=== PATIENT | male | born 1940 | race Caucasian/White ===

== ENCOUNTER → 2016-12-26 | Outpatient (REF) | payer OTHER | LOC: M LABDRAWC 11:19 | PROVIDERS: ATTEND Urology | DX: R97.20 Elevated prostate specific antigen [PSA] (principal) ==

== ENCOUNTER → 2017-06-27 | Outpatient (REF) | payer OTHER | LOC: M LAB REF 17:18 | PROVIDERS: ATTEND Urology | DX: D40.0 Neoplasm of uncertain behavior of prostate (principal) ==

== ENCOUNTER → 2017-07-24 | Outpatient (REF) | payer MEDICARE, OTHER, SELFPAY | LOC: M LAB REF 17:10 | PROVIDERS: ATTEND Urology | DX: R35.0 Frequency of micturition (principal) ==

== ENCOUNTER → 2017-11-10 | Outpatient (REF) | payer OTHER ==
[2017-11-10 16:41] LABS: PROSTATIC SPECIFIC AG MONITOR 6.09 NG/ML (< 4.0)
== END ==
LOC: M LABDRAWC 16:10
DX: R97.21 Rising PSA following treatment for malignant neoplasm of prostate (principal); R97.20 Elevated prostate specific antigen [PSA]
CPT/HCPCS: 84153

== ENCOUNTER → 2018-03-30 | Outpatient (REF) | payer OTHER ==
[2018-03-30 11:11] LABS: HEMATOCRIT 44.6 % (42.0-52.0); HEMOGLOBIN 14.9 g/dl (13.5-17.5); MEAN CORPUSCULAR HEMOGLOBIN 30.3 pg (27.0-33.0); MEAN CORPUSCULAR HGB CONC 33.4 g/dl (32.0-36.5); MEAN CORPUSCULAR VOLUME 90.8 fl (80.0-96.0); PLATELET COUNT, AUTOMATED 234 10^3/uL (150-450); RED BLOOD COUNT 4.91 10^6/uL (4.30-6.10); RED CELL DISTRIBUTION WIDTH 12.1 % (11.5-14.5); WHITE BLOOD COUNT 7.2 10^3/uL (4.0-10.0)
[2018-03-30 11:28] LABS: ALBUMIN 3.7 GM/DL (3.2-5.2); ALBUMIN/GLOBULIN RATIO 1.12 (1.00-1.93); ALKALINE PHOSPHATASE 92 U/L (45-117); ALT/SGPT 31 U/L (12-78); ANION GAP 6 MEQ/L (8-16); AST/SGOT 21 U/L (7-37); BILIRUBIN,TOTAL 0.5 MG/DL (0.2-1.0); BLOOD UREA NITROGEN 16 MG/DL (7-18); CALCIUM LEVEL 9.4 MG/DL (8.8-10.2); CARBON DIOXIDE LEVEL 27 MEQ/L (21-32); CHLORIDE LEVEL 109 MEQ/L (98-107); CHOLESTEROL LEVEL 152 MG/DL (<200); CHOLESTEROL RISK RATIO 2.666 (<5); CREATININE FOR GFR 0.91 MG/DL (0.70-1.30); GLOMERULAR FILTRATION RATE > 60.0 (>42); GLUCOSE, FASTING 81 MG/DL (70-100); HDL CHOLESTEROL 57 MG/DL (>40); LDL CHOLESTEROL 86.2 MG/DL (<100); NON-HDL-C 95 MG/DL; POTASSIUM SERUM 4.4 MEQ/L (3.5-5.1); PROSTATIC SPECIFIC AG MONITOR 5.62 NG/ML (< 4.0); SODIUM LEVEL 142 MEQ/L (136-145); TRIGLYCERIDES LEVEL 44 MG/DL (<150)
== END ==
LOC: M SFHCCLAY 07:31
DX: E78.00 Pure hypercholesterolemia, unspecified (principal); Z12.5 Encounter for screening for malignant neoplasm of prostate
CPT/HCPCS: 80053

== ENCOUNTER → 2018-05-16 | Outpatient (REF) | payer OTHER ==
[2018-05-16 18:35] LABS: PROSTATIC SPECIFIC AG MONITOR 6.92 NG/ML (< 4.0)
== END ==
LOC: M LABDRAWC 16:59
DX: R35.0 Frequency of micturition (principal)
CPT/HCPCS: 84153

== ENCOUNTER 2018-11-12 14:40 | Emergency (ER) | payer MEDICARE, OTHER ==
[~2018-11-12] VITALS: Ht 188 cm; Wt 88.2 kg
[2018-11-12] MEDS ORDERED: PRAV40TA2 PO (15:17)
[2018-11-12] MEDS ORDERED: TAMSULOSIN (15:17)
[2018-11-12] MEDS ORDERED: MULT1TAB18 PO (15:17)
[2018-11-12] MEDS ORDERED: ECOT81TA5 PO (15:17)
[2018-11-12 15:48] LABS: BASO # 0.1 10^3/uL (0.0-0.2); EOS # 0.2 10^3/uL (0.0-0.50); EOS % 1.9 % (0.0-3.0); HEMATOCRIT 43.7 % (42.0-52.0); HEMOGLOBIN 14.7 g/dl (13.5-17.5); LYMPH # 1.4 10^3/uL (1.5-4.5); MEAN CORPUSCULAR HEMOGLOBIN 30.1 pg (27.0-33.0); MEAN CORPUSCULAR HGB CONC 33.6 g/dl (32.0-36.5); MEAN CORPUSCULAR VOLUME 89.4 fl (80.0-96.0); MONO # 0.7 10^3/uL (0.0-0.8); MONO % 8.4 % (0.0-5.0); NEUTROPHILS # 5.7 10^3/uL (1.8-7.7); NEUTROPHILS % 71.4 % (36.0-66.0); PLATELET COUNT, AUTOMATED 230 10^3/uL (150-450); RED BLOOD COUNT 4.89 10^6/uL (4.30-6.10)
[2018-11-12] MEDS ORDERED: GI COCKTAIL 50ML BTL(HYOSCYAMINE/MAALOX/LIDOCAINE VISCOUS)(1:3:1) PO ONE (16:00)
--- NOTE | 2018-11-12 16:01 | REP ---
Clinical: Acute chest pain . Comparison: 03/11/2013 . Findings: The mediastinum and cardiac silhouette are stable and within normal limits for portable technique. The lung ledezma are clear without acute consolidation, effusion, or pneumothorax. Skeletal structures are intact. Impression: No acute cardiopulmonary process appreciated. Electronically Signed by Teddy Woods MD 11/12/2018 03:54 P
[2018-11-12 16:11] LABS: ALBUMIN 3.7 GM/DL (3.2-5.2); ALT/SGPT 37 U/L (12-78); BILIRUBIN,DIRECT 0.1 MG/DL (0.0-0.2); BILIRUBIN,TOTAL 0.4 MG/DL (0.2-1.0); BLOOD UREA NITROGEN 18 MG/DL (7-18); CALCIUM LEVEL 9.5 MG/DL (8.8-10.2); CARBON DIOXIDE LEVEL 27 MEQ/L (21-32); CHLORIDE LEVEL 107 MEQ/L (98-107); CPK CREATINE PHOSPHOKINASE 76 U/L (39-308); FREE T4 1.03 NG/DL (0.76-1.46); GLOMERULAR FILTRATION RATE > 60.0 (>42); GLUCOSE, FASTING 93 MG/DL (70-100); MB/CK RELATIVE INDEX 7.37 (< OR =4); NT-PRO BNP 43 PG/ML (<450); SODIUM LEVEL 140 MEQ/L (136-145); TOTAL PROTEIN 6.9 GM/DL (6.4-8.2); TROPONIN I < 0.02 NG/ML (< 0.10)
[2018-11-12 16:32] LABS: INR 1.06; PROTHROMBIN TIME 13.9 SECONDS (12.1-14.4)
[2018-11-12 18:35] LABS: CPK CREATINE PHOSPHOKINASE 72 U/L (39-308); MB/CK RELATIVE INDEX 7.08 (< OR =4); TROPONIN I < 0.02 NG/ML (< 0.10)
[2018-11-12 19:00] LABS: INFLUENZA A AMPLIFICATION NEGATIVE (NEGATIVE); INFLUENZA B AMPLIFICATION NEGATIVE (NEGATIVE)
[2018-11-12 20:09] LABS: CPK CREATINE PHOSPHOKINASE 64 U/L (39-308); MB/CK RELATIVE INDEX 7.19 (< OR =4); TROPONIN I < 0.02 NG/ML (< 0.10)
[2018-11-12] MEDS ORDERED: HOLTER MONITOR (21:02)
[2018-11-12] MEDS ORDERED: IBUP-1114 PO (21:03)
[2018-11-12 21:20] VITALS: BP 149/81
--- NOTE | 2018-11-13 21:53 | ECGEPIP ---
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
--- NOTE | 2018-11-13 21:58 | ECGEPIP ---
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
== END 2018-11-12 21:21 | disposition home or self-care (01) ==
LOC: M ED 14:40
DX: R00.2 Palpitations (principal); R94.31 Abnormal electrocardiogram [ECG] [EKG]; Z79.82 Long term (current) use of aspirin; Z79.899 Other long term (current) drug therapy

== ENCOUNTER → 2018-11-14 | Outpatient (CLI) | payer MEDICARE ==
[~2018-11-14] MED LIST: ECOT81TA5 PO; HOLTER MONITOR; IBUP-1114 PO; MULT1TAB18 PO; PRAV40TA2 PO; TAMSULOSIN
--- NOTE | 2018-11-17 11:18 | HOLTMON ---
[facility] Test Date: 2018-11-14 Pat Name: SHERRIE ARANA Department: Room: - Gender: Ophthalmic Technologist: JORDON BOYKIN : 1940 Requested By: Tresa Hope Order Number: [id number] Reading MD: Sandee Adorno Interpretive Statements A LOT OF ARTIFACT SINUS MECHANISM THROUGHOUT (51-121) FIRST DEGREE BLOCK RARE PVC RARE PAC COMPUTER OVERREADING V ECTOPY AND RUNS BETWEEN 730 AM AND 1030AM SEE STRIPS PGS 17-22 WHICH ARE FOR MOST PART NOT LABELED CORRECTLY. LABELED VENTRIVULAR RUNS / TRIGEMINY ETC WHEN INFACT SINUS A REULT SUMMARY PAGES FOR THIS TIME PERIOD INCORRECTLY FAR OVERSTATES THE NUMBER OF PVCS DIARY STRIPS UNREMARKABLE FOR ANYTHING OTHER THAN BASELINE. Electronically Signed On 11-17-2018 11:17:36 EDT by Sandee Adorno
== END ==
LOC: M EKG 11:07
PROVIDERS: ATTEND Emergency Medicine
DX: R00.2 Palpitations (principal)

== ENCOUNTER 2018-11-29 20:10 | Emergency (ER) | payer MEDICARE ==
[~2018-11-29] VITALS: Ht 188 cm; Wt 85.5 kg
[2018-11-29 21:32] LABS: BASO # 0.1 10^3/uL (0.0-0.2); BASO % 1.2 % (0.0-1.0); EOS # 0.3 10^3/uL (0.0-0.50); EOS % 3.7 % (0.0-3.0); HEMATOCRIT 44.2 % (42.0-52.0); HEMOGLOBIN 14.9 g/dl (13.5-17.5); LYMPH # 2.1 10^3/uL (1.5-4.5); LYMPH % 23.6 % (24.0-44.0); MEAN CORPUSCULAR HEMOGLOBIN 30.3 pg (27.0-33.0); MEAN CORPUSCULAR HGB CONC 33.7 g/dl (32.0-36.5); MEAN CORPUSCULAR VOLUME 89.8 fl (80.0-96.0); MONO # 0.8 10^3/uL (0.0-0.8); MONO % 9.1 % (0.0-5.0); NEUTROPHILS # 5.4 10^3/uL (1.8-7.7); NEUTROPHILS % 62.3 % (36.0-66.0); PLATELET COUNT, AUTOMATED 251 10^3/uL (150-450); RED BLOOD COUNT 4.92 10^6/uL (4.30-6.10); WHITE BLOOD COUNT 8.7 10^3/uL (4.0-10.0)
--- NOTE | 2018-11-29 21:51 | ECGEPIP ---
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
[2018-11-29 22:04] LABS: BLOOD UREA NITROGEN 17 MG/DL (7-18); CALCIUM LEVEL 9.7 MG/DL (8.8-10.2); CARBON DIOXIDE LEVEL 29 MEQ/L (21-32); CHLORIDE LEVEL 106 MEQ/L (98-107); CREATININE FOR GFR 1.01 MG/DL (0.70-1.30); GLOMERULAR FILTRATION RATE > 60.0 (>42); GLUCOSE, FASTING 92 MG/DL (70-100); POTASSIUM SERUM 4.1 MEQ/L (3.5-5.1); SODIUM LEVEL 138 MEQ/L (136-145); T UPTAKE 34 % (33-40); THYROXINE (T4) 8.8 UG/DL (4.5-12.0)
[2018-11-29 23:37] VITALS: BP 147/76
[2018-11-29] MEDS ORDERED: CARA1TAB6 PO (23:40)
[2018-11-29] MEDS ORDERED: PROT1TAB2 PO (23:40)
[2018-11-29] MEDS ORDERED: PANTOPRAZOLE 40MG TAB (PROTONIX) PO ONE (23:45)
[2018-11-29] MEDS ORDERED: SUCRALFATE SUSP 1GM/10ML UD PO ONE (23:45)
== END 2018-11-29 23:58 | disposition home or self-care (01) ==
LOC: M ED 20:10
DX: R00.2 Palpitations (principal); E78.5 Hyperlipidemia, unspecified; N40.0 Benign prostatic hyperplasia without lower urinary tract symptoms; Z79.899 Other long term (current) drug therapy

== ENCOUNTER → 2018-12-24 | Outpatient (REF) | payer MEDICARE ==
[~2018-12-24] MED LIST changes: +CARA1TAB6 PO; +PROT1TAB2 PO
== END ==
LOC: M LABDRAWC 11:20
PROVIDERS: ATTEND Urology
DX: R35.0 Frequency of micturition (principal)

== ENCOUNTER 2019-01-19 19:40 | Emergency (ER) | payer MEDICARE ==
[~2019-01-19] VITALS: Ht 188 cm; Wt 81.8 kg
[2019-01-19 19:40] VITALS: BP 143/83
== END 2019-01-19 21:18 | disposition home or self-care (01) ==
LOC: M ED 19:40
DX: R39.13 Splitting of urinary stream (principal); R39.12 Poor urinary stream; E86.0 Dehydration; N40.0 Benign prostatic hyperplasia without lower urinary tract symptoms; Z79.899 Other long term (current) drug therapy; Z79.82 Long term (current) use of aspirin

== ENCOUNTER 2019-02-25 12:18 | Day surgery (SDC) | payer MEDICARE ==
[~2019-02-25] VITALS: Ht 188 cm; Wt 86.4 kg
[~2019-02-25 12:18] MED LIST changes: +ALFU10TA2 PO; +FLOM0.4C39 PO; +LIDOCAINE 2% INJ 100 MG/5 ML SDV (FOR ANES.) As Ordered ONE; +MULTCAP PO; +NS 1,000 ML IV ONE; +PRAV10TA3 PO; +PROPOFOL 200 MG/20 ML VIAL As Ordered ONE
--- NOTE | 2019-02-25 13:22 | ROOR ---
Patient Name: Sushil Ortiz Procedure Date: 02/25/2019 1:06 PM Date of : 1940 Age: 79 Room: [facility] Gender: Male Note Status: Finalized Procedure: Upper GI endoscopy Indications: Dysphagia, Heartburn Providers: Owen WASHINGTON MD Referring MD: Mickey Lala MD Requesting Provider: Medicines: Monitored Anesthesia Care Complications: No immediate complications. Procedure: Pre-Anesthesia Assessment: - The heart rate, respiratory rate, oxygen saturations, blood pressure, adequacy of pulmonary ventilation, and response to care were monitored throughout the procedure. The upper GI endoscopy was performed with difficulty due to presence of food. The patient tolerated the procedure well. The Endoscope was introduced through the mouth, with the intention of advancing to the duodenum. The scope was advanced to the lower third of the esophagus before the procedure was aborted. Medications were given. Findings: The examined esophagus was normal. A large amount of food (residue) was found in the entire examined stomach. --procedure aborted due to aspiration risk and poor visualisation. Stomach and duodenum not visualized. Impression: - Normal esophagus. - A large amount of food (residue) in the stomach--procedure aborted due to aspiration risk and poor visualisation. Stomach and duodenum not visualized. - No specimens collected. Recommendation: - Repeat upper endoscopy at the next available appointment because the preparation was poor. - Gastroparesis likely. pt needs longer fast. Will repeat next available. - My office will call you to reschedule the procedure. Owen Washington MD Owen WASHINGTON MD 02/25/2019 1:21:49 PM Electronically signed by Owen WASHINGTON MD Number of Addenda: 0 Note Initiated On: 02/25/2019 1:06 PM Estimated Blood Loss: Estimated blood loss: none.
[2019-02-25 13:40] VITALS: BP 110/64
== END 2019-02-25 13:50 | disposition home or self-care (01) ==
LOC: M OPP 12:18
PROVIDERS: ATTEND Internal Medicine Gastroenterology
DX: R12 Heartburn (principal); R13.10 Dysphagia, unspecified; Z79.82 Long term (current) use of aspirin; Z79.899 Other long term (current) drug therapy; Z88.8 Allergy status to other drugs, medicaments and biological substances; Z87.891 Personal history of nicotine dependence

== ENCOUNTER → 2019-04-03 | Outpatient (REF) | payer MEDICARE ==
[~2019-04-03] MED LIST changes: -LIDOCAINE 2% INJ 100 MG/5 ML SDV (FOR ANES.) As Ordered ONE; -NS 1,000 ML IV ONE; -PROPOFOL 200 MG/20 ML VIAL As Ordered ONE
[2019-04-03 12:11] LABS: HEMATOCRIT 44.7 % (42.0-52.0); MEAN CORPUSCULAR HEMOGLOBIN 30.2 pg (27.0-33.0); MEAN CORPUSCULAR HGB CONC 33.6 g/dl (32.0-36.5); MEAN CORPUSCULAR VOLUME 89.9 fl (80.0-96.0); PLATELET COUNT, AUTOMATED 229 10^3/uL (150-450); RED BLOOD COUNT 4.97 10^6/uL (4.30-6.10); WHITE BLOOD COUNT 8.1 10^3/uL (4.0-10.0)
[2019-04-03 12:29] LABS: ALBUMIN 3.7 GM/DL (3.2-5.2); ALT/SGPT 31 U/L (12-78); BILIRUBIN,TOTAL 0.4 MG/DL (0.2-1.0); BLOOD UREA NITROGEN 15 MG/DL (7-18); CALCIUM LEVEL 9.6 MG/DL (8.8-10.2); CARBON DIOXIDE LEVEL 26 MEQ/L (21-32); CHLORIDE LEVEL 108 MEQ/L (98-107); CHOLESTEROL LEVEL 157 MG/DL (<200); CHOLESTEROL RISK RATIO 2.573 (<5); CREATININE FOR GFR 0.98 MG/DL (0.70-1.30); GLOMERULAR FILTRATION RATE > 60.0 (>42); GLUCOSE, FASTING 78 MG/DL (70-100); HDL CHOLESTEROL 61 MG/DL (>40); LDL CHOLESTEROL 87 MG/DL (<100); NON-HDL-C 96 MG/DL; PROSTATIC SPECIFIC AG MONITOR 5.39 NG/ML (< 4.00); SODIUM LEVEL 141 MEQ/L (136-145); TOTAL PROTEIN 7.2 GM/DL (6.4-8.2); TRIGLYCERIDES LEVEL 45 MG/DL (<150)
== END ==
LOC: M SFHCCLAY 07:32
PROVIDERS: ATTEND Family Medicine
DX: Z00.00 Encounter for general adult medical examination without abnormal findings (principal); K21.9 Gastro-esophageal reflux disease without esophagitis; E78.00 Pure hypercholesterolemia, unspecified; R97.20 Elevated prostate specific antigen [PSA]

== ENCOUNTER 2019-05-28 12:32 | Day surgery (SDC) | payer MEDICARE ==
[~2019-05-28] VITALS: Ht 188 cm; Wt 84.4 kg
[~2019-05-28 12:32] MED LIST changes: +FINA5TAB2 PO; +NS 1,000 ML IV ONE
[2019-05-28] MEDS ORDERED: OMEG12003 PO (13:31)
[2019-05-28] MEDS ORDERED: LIDOCAINE 2% INJ 100 MG/5 ML SDV (FOR ANES.) As Ordered ONE (13:47)
[2019-05-28] MEDS ORDERED: PROPOFOL 200 MG/20 ML VIAL As Ordered ONE (13:47)
--- NOTE | 2019-05-28 14:50 | ROOR ---
Patient Name: Sushil Ortiz Procedure Date: 05/28/2019 2:36 PM Date of : 1940 Age: 79 Room: [facility] Gender: Male Note Status: Finalized Procedure: Upper GI endoscopy Indications: Gastroparesis (previous EGD wilth large food in stomach after >8 hr fast) Providers: Owen WASHINGTON MD Referring MD: Mickey Lala MD Requesting Provider: Medicines: Monitored Anesthesia Care Complications: No immediate complications. Procedure: Pre-Anesthesia Assessment: - The heart rate, respiratory rate, oxygen saturations, blood pressure, adequacy of pulmonary ventilation, and response to care were monitored throughout the procedure. The Endoscope was introduced through the mouth, and advanced to the second part of duodenum. The upper GI endoscopy was accomplished without difficulty. The patient tolerated the procedure well. Findings: Very small (insignificant) Hiatal Hernia. The esophagus was normal. The stomach was normal. The examined duodenum was normal. Impression: - Very small (insignificant) Hiatal Hernia. - Normal esophagus. - Normal stomach. - Normal examined duodenum. - No specimens collected. Recommendation: - Observe patient's clinical course. - Continue present medications. - Gastroparesis diet: - Eat smaller, more frequent meals throughout the day. - Low fat diet. - Liquid/soft foods are tolerated better than solid foods. - Low fiber/well cooked vegetables are tolerated better than high fiber/fibrous foods/raw vegetables. - Avoid medications that inhibit gastric/intestinal motility such as narcotic medications. Owen Washington MD Owen WASHINGTON MD 05/28/2019 2:49:58 PM Electronically signed by Owen WASHINGTON MD Number of Addenda: 0 Note Initiated On: 05/28/2019 2:36 PM Estimated Blood Loss: Estimated blood loss: none.
[2019-05-28 15:25] VITALS: BP 131/81
== END 2019-05-28 15:30 | disposition home or self-care (01) ==
LOC: M OPP 12:32
PROVIDERS: ATTEND Internal Medicine Gastroenterology
DX: K44.9 Diaphragmatic hernia without obstruction or gangrene (principal); K31.84 Gastroparesis; Z79.82 Long term (current) use of aspirin; Z79.899 Other long term (current) drug therapy

== ENCOUNTER → 2019-06-24 | Outpatient (REF) | payer MEDICARE ==
[~2019-06-24] MED LIST changes: -NS 1,000 ML IV ONE; +OMEG12003 PO
== END ==
LOC: M LAB REF 18:53
PROVIDERS: ATTEND Urology
DX: R97.20 Elevated prostate specific antigen [PSA] (principal); R39.89 Other symptoms and signs involving the genitourinary system

== ENCOUNTER → 2020-04-26 | Outpatient (CLI) | payer MEDICARE ==
[~2020-04-26] MED LIST changes: -ALFU10TA2 PO; +ALFU10TA3 PO
== END ==
LOC: M LABSMTC 08:32
PROVIDERS: ATTEND Anesthesiology
DX: Z01.818 Encounter for other preprocedural examination (principal); Z11.59 Encounter for screening for other viral diseases; Z20.828 Contact with and (suspected) exposure to other viral communicable diseases
CPT/HCPCS: C9803; U0003

== ENCOUNTER 2020-05-01 09:34 | Day surgery (SDC) | payer MEDICARE ==
[~2020-05-01] VITALS: Ht 188 cm; Wt 83.8 kg
[~2020-05-01 09:34] MED LIST changes: +ACETAMINOPHEN 1000MG 100ML IV BTL (OFIRMEV) (J0131 PER 10MG) As Ordered ONE; +BUPIVACAINE/EPIN 0.25% 30 ML VIAL As Ordered ONE; +KETOROLAC 60MG 2ML VIAL As Ordered ONE; +LIDOCAINE 2% 100MG/5ML SDV (FOR ANES.) As Ordered ONE; +LR 1,000 ML IV ONE; +MIDAZOLAM INJ 2MG/2ML VIAL (J2250 PER 1MG) As Ordered ONE; +ONDANSETRON 4MG/2ML VIAL As Ordered ONE; +ROCURONIUM BROMIDE 50 MG/5 ML VIAL As Ordered ONE; +SUGAMMADEX SODIUM 500 MG/5 ML VIAL (BRIDION) As Ordered ONE; +ceFAZolin SOD 2 GM in IV 1 EA IV ONE; +dexameTHASONE 4 MG/ML 1ML VIAL (J1100 PER 1MG) As Ordered ONE; +fentaNYL 100 MCG/2 ML INJECTION (J3010) As Ordered ONE; +propofoL 200 MG/20 ML VIAL As Ordered ONE
[2020-05-01] MEDS ORDERED: ceFAZolin 2 GM/D5W 50 ML IV BAG (J0690 PER 500MG) As Ordered ONE (10:00)
[2020-05-01] MEDS ORDERED: ePHEDrine SULFATE 25 MG/5 ML(5MG/ML) SYRINGE As Ordered ONE (11:01)
[2020-05-01] MEDS ORDERED: fentaNYL 100 MCG/2 ML INJECTION (J3010) As Ordered ONE (11:12)
[2020-05-01] MEDS ORDERED: HYDROMORPHONE HCL 0.5 MG/ 0.5 ML SYRINGE (J1170 PER 1) IV PRN (12:15)
[2020-05-01] MEDS ORDERED: ONDANSETRON 4MG/2ML VIAL IV PRN (12:15)
[2020-05-01] MEDS ORDERED: NORCO, ANEXSIA 5/325MG TABLET (HYDROcodone/ACETAMINOPHEN) PO PRN (12:15)
[2020-05-01] MEDS ORDERED: oxyCODONE 5MG TAB PO PRN (12:15)
[2020-05-01] MEDS ORDERED: fentaNYL 100 MCG/2 ML INJECTION (J3010) IV PRN (12:15)
[2020-05-01] MEDS ORDERED: LR 1,000 ML IV SCH (12:15)
[2020-05-01 14:05] VITALS: BP 149/86
--- NOTE | 2020-05-18 08:17 | RO ---
DATE OF OPERATION: 05/01/20 PREOPERATIVE DIAGNOSIS: Right inguinal hernia. POSTOPERATIVE DIAGNOSIS: Right inguinal hernia. PROCEDURE: Robotic right inguinal hernia repair. SURGEON: Aden Velasquez DO CATALOGUE CLERK: Ewa Pulliam ANESTHESIA: General. ESTIMATED BLOOD LOSS: 5. COMPLICATIONS: None. INDICATIONS FOR PROCEDURE: Patient is a 80-year-old male who presents with right groin bulge and found to have a large right inguinal hernia. Recommendation was to proceed with robotic repair. Risks and benefits of the procedure not limited to, but including bleeding, infection, hernia recurrence, hernia formation, damage to surrounding structures, need for further surgery were discussed in detail with the patient. Informed consent was obtained and procedure was planned. PROCEDURE: The patient was brought back to operating room #7. After sufficient sedation, the abdomen was sterilely prepped and draped. Next, a time out was done to confirm proper patient and proper procedure. Following that, an 8 mm incision was made in the left upper quadrant and Veress needle was inserted. The abdomen was insufflated to 15 mmHg. The Veress needle was then removed and an 8 mm Optiview port was used to gain access to the abdomen. Once the abdomen was entered, two more robotic ports were placed in upper midline and right upper quadrant. Next, the right lower quadrant was examined. The ports were then connected to the robot on the console. The peritoneal space was opened into the right lower quadrant with curved incision. The preperitoneal space was then dissected free circumferentially around the cord structures and the hernia sac. The hernia sac was then dissected free from all the cord structures posteriorly, medially and laterally. Once that was completely reduced the Bard 3DMax light and medium mesh was placed into the preperitoneal space and it was sutured to the pubic symphysis using 2-0 Vicryl suture. The peritoneum was then closed over top of the mesh using 2-0 V-Loc. Once that was completed, the abdomen was desufflated. Skin incisions were closed with 4-0 Vicryl subcuticular sutures. The abdomen was clean and dried, Steri-Strips and 4 x 4s and tape were applied. [facility]
== END 2020-05-01 14:22 | disposition home or self-care (01) ==
LOC: M SDC 09:34
PROVIDERS: ATTEND Surgery
DX: K40.90 Unilateral inguinal hernia, without obstruction or gangrene, not specified as recurrent (principal); E78.00 Pure hypercholesterolemia, unspecified; K21.9 Gastro-esophageal reflux disease without esophagitis; Z79.82 Long term (current) use of aspirin; Z79.899 Other long term (current) drug therapy; Z88.8 Allergy status to other drugs, medicaments and biological substances
CPT/HCPCS: 49650; C1781; J0131; J0690; J1100; J1885; J2250; J2405; J3010

== ENCOUNTER → 2020-11-30 | Outpatient (REF) | payer MEDICARE ==
[~2020-11-30] MED LIST changes: -ACETAMINOPHEN 1000MG 100ML IV BTL (OFIRMEV) (J0131 PER 10MG) As Ordered ONE; -BUPIVACAINE/EPIN 0.25% 30 ML VIAL As Ordered ONE; -KETOROLAC 60MG 2ML VIAL As Ordered ONE; -LIDOCAINE 2% 100MG/5ML SDV (FOR ANES.) As Ordered ONE; -LR 1,000 ML IV ONE; -MIDAZOLAM INJ 2MG/2ML VIAL (J2250 PER 1MG) As Ordered ONE; -ONDANSETRON 4MG/2ML VIAL As Ordered ONE; -ROCURONIUM BROMIDE 50 MG/5 ML VIAL As Ordered ONE; -SUGAMMADEX SODIUM 500 MG/5 ML VIAL (BRIDION) As Ordered ONE; -ceFAZolin SOD 2 GM in IV 1 EA IV ONE; -dexameTHASONE 4 MG/ML 1ML VIAL (J1100 PER 1MG) As Ordered ONE; -fentaNYL 100 MCG/2 ML INJECTION (J3010) As Ordered ONE; -propofoL 200 MG/20 ML VIAL As Ordered ONE
== END ==
LOC: M LABDRAWC 15:43
PROVIDERS: ATTEND Urology
DX: R97.20 Elevated prostate specific antigen [PSA] (principal)

== ENCOUNTER → 2021-06-07 | Outpatient (REF) | payer MEDICARE ==
[2021-06-07 12:12] LABS: HEMATOCRIT 44.4 % (42.0-52.0); HEMOGLOBIN 14.6 g/dl (13.5-17.5); MEAN CORPUSCULAR HEMOGLOBIN 30.3 pg (27.0-33.0); MEAN CORPUSCULAR HGB CONC 32.9 g/dl (32.0-36.5); MEAN CORPUSCULAR VOLUME 92.1 fl (80.0-96.0); PLATELET COUNT, AUTOMATED 224 10^3/uL (150-450); RED BLOOD COUNT 4.82 10^6/uL (4.30-6.10); WHITE BLOOD COUNT 7.6 10^3/uL (4.0-10.0)
[2021-06-07 13:08] LABS: ALBUMIN 3.8 GM/DL (3.2-5.2); ALT/SGPT 30 U/L (12-78); BILIRUBIN,TOTAL 0.5 MG/DL (0.2-1.0); BLOOD UREA NITROGEN 16 MG/DL (7-18); CALCIUM LEVEL 10.3 MG/DL (8.8-10.2); CARBON DIOXIDE LEVEL 29 MEQ/L (21-32); CHLORIDE LEVEL 108 MEQ/L (98-107); CHOLESTEROL LEVEL 177 MG/DL (<200); CHOLESTEROL RISK RATIO 2.765 (<5); CREATININE FOR GFR 0.93 MG/DL (0.70-1.30); GLOMERULAR FILTRATION RATE > 60.0 (>42); GLUCOSE, FASTING 74 MG/DL (70-100); HDL CHOLESTEROL 64 MG/DL (>40); LDL CHOLESTEROL 103 MG/DL (<100); NON-HDL-C 113 MG/DL; SODIUM LEVEL 140 MEQ/L (136-145); TOTAL 25(OH) VITAMIN D 35.8 NG/ML (30.0-100.0); TRIGLYCERIDES LEVEL 49 MG/DL (<150)
== END ==
LOC: M SFHCCLAY 08:34
PROVIDERS: ATTEND Family Medicine
DX: E78.00 Pure hypercholesterolemia, unspecified (principal)

== ENCOUNTER → 2021-12-14 | Outpatient (REF) | payer MEDICARE | LOC: M LABDRAWC 15:53 | PROVIDERS: ATTEND Urology | DX: R97.20 Elevated prostate specific antigen [PSA] (principal); R39.89 Other symptoms and signs involving the genitourinary system ==

== ENCOUNTER → 2022-04-11 | Outpatient (CLI) | payer MEDICARE | LOC: M CLY 08:22 | PROVIDERS: ATTEND Family Medicine | DX: M25.562 Pain in left knee (principal); G89.29 Other chronic pain; M79.89 Other specified soft tissue disorders; M85.862 Other specified disorders of bone density and structure, left lower leg; M17.12 Unilateral primary osteoarthritis, left knee ==

== ENCOUNTER → 2022-04-11 | Outpatient (REF) | payer MEDICARE ==
[2022-04-11 13:25] LABS: ALBUMIN 3.8 GM/DL (3.2-5.2); ALT/SGPT 30 U/L (12-78); BILIRUBIN,TOTAL 0.4 MG/DL (0.2-1.0); BLOOD UREA NITROGEN 18 MG/DL (7-18); CALCIUM LEVEL 9.9 MG/DL (8.8-10.2); CARBON DIOXIDE LEVEL 25 MEQ/L (21-32); CHLORIDE LEVEL 110 MEQ/L (98-107); CREATININE FOR GFR 0.96 MG/DL (0.70-1.30); FREE T4 0.95 NG/DL (0.76-1.46); GLOMERULAR FILTRATION RATE > 60.0 (>35); GLUCOSE, FASTING 82 MG/DL (70-100); POTASSIUM SERUM 4.2 MEQ/L (3.5-5.1); SODIUM LEVEL 140 MEQ/L (136-145); TOTAL PROTEIN 7.1 GM/DL (6.4-8.2)
== END ==
LOC: M SFHCCLAY 08:17
PROVIDERS: ATTEND Family Medicine
DX: E83.52 Hypercalcemia (principal); M25.562 Pain in left knee; G89.29 Other chronic pain; K21.9 Gastro-esophageal reflux disease without esophagitis; E78.00 Pure hypercholesterolemia, unspecified; N40.1 Benign prostatic hyperplasia with lower urinary tract symptoms; R03.0 Elevated blood-pressure reading, without diagnosis of hypertension; M79.89 Other specified soft tissue disorders; M85.862 Other specified disorders of bone density and structure, left lower leg; M17.12 Unilateral primary osteoarthritis, left knee

== ENCOUNTER → 2022-05-09 | Outpatient (CLI) | payer MEDICARE | LOC: M SOG 09:09 | PROVIDERS: ATTEND Orthopaedic Surgery Adult Reconstructive Orthopaedic Surgery | DX: M25.562 Pain in left knee (principal) ==

== ENCOUNTER → 2022-10-25 | Outpatient (REF) | payer MEDICARE ==
[2022-10-25 18:29] LABS: HEMATOCRIT 47.5 % (42.0-52.0); HEMOGLOBIN 15.6 g/dl (13.5-17.5); MEAN CORPUSCULAR HEMOGLOBIN 31.1 pg (27.0-33.0); MEAN CORPUSCULAR HGB CONC 32.8 g/dl (32.0-36.5); MEAN CORPUSCULAR VOLUME 94.6 fl (80.0-96.0); PLATELET COUNT, AUTOMATED 244 10^3/uL (150-450); RED BLOOD COUNT 5.02 10^6/uL (4.30-6.10); WHITE BLOOD COUNT 7.3 10^3/uL (4.0-10.0)
[2022-10-25 18:46] LABS: APPEARANCE, URINE CLEAR (CLEAR); BACTERIA, URINE AUTO NEGATIVE (NEGATIVE); BILIRUBIN, URINE AUTO NEGATIVE (NEGATIVE); BLOOD, URINE BLOOD NEGATIVE (NEGATIVE); COLOR, URINE YELLOW (YELLOW); GLUCOSE, URINE (UA) AUTO NEGATIVE (NEGATIVE); KETONE, URINE AUTO NEGATIVE (NEGATIVE); LEUKOCYTE ESTERASE, URINE AUTO NEGATIVE (NEGATIVE); NITRITE, URINE AUTO NEGATIVE (NEGATIVE); PROTEIN, URINE AUTO NEGATIVE (NEGATIVE); RBC, URINE AUTO 0 /HPF (0-3); SPECIFIC GRAVITY URINE AUTO 1.019 (1.002-1.035); SQUAMOUS EPITHELIAL CELL UR AU 0 /HPF (0-6); UROBILINOGEN, URINE AUTO 0.2 mg/dL (0.0-2.0); WBC, URINE AUTO 0 /HPF (0-3)
[2022-10-25 19:04] LABS: ALKALINE PHOSPHATASE 91 U/L (46-116); ALT/SGPT 24 U/L (7.0-40); AST/SGOT 23 U/L (<34); BILIRUBIN,TOTAL 0.8 MG/DL (0.3-1.2); BLOOD UREA NITROGEN 17 MG/DL (9-23); CALCIUM LEVEL 9.8 MG/DL (8.3-10.6); CARBON DIOXIDE LEVEL 28 MMOL/L (20-31); CHLORIDE LEVEL 107 MMOL/L (98-107); CHOLESTEROL LEVEL 162 MG/DL (<200); CHOLESTEROL RISK RATIO 2.84 (<5); CREATININE FOR GFR 0.91 MG/DL (0.70-1.30); GLOMERULAR FILTRATION RATE > 60.0 (>35); GLUCOSE, FASTING 77 MG/DL (74-106); LDL CHOLESTEROL 93.6 MG/DL (<100); PROSTATIC SPECIFIC AG MONITOR 2.28 NG/ML (< 4.00); SODIUM LEVEL 141 MMOL/L (136-145); TOTAL PROTEIN 6.9 G/DL (5.7-8.2); TRIGLYCERIDES LEVEL 57 MG/DL (<150)
== END ==
LOC: M SFHCCLAY 09:24
PROVIDERS: ATTEND Family Medicine
DX: E78.00 Pure hypercholesterolemia, unspecified (principal); K21.9 Gastro-esophageal reflux disease without esophagitis; R97.20 Elevated prostate specific antigen [PSA]

== ENCOUNTER → 2023-01-31 | Outpatient (REF) | payer MEDICARE | LOC: M SFHCCLAY 12:23 | PROVIDERS: ATTEND Family Medicine | DX: H93.13 Tinnitus, bilateral (principal); E78.00 Pure hypercholesterolemia, unspecified; R53.83 Other fatigue ==

== ENCOUNTER → 2023-02-01 | Outpatient (REF) | payer MEDICARE ==
[2023-02-01 12:36] LABS: HEMOGLOBIN 14.6 g/dl (13.5-17.5); MEAN CORPUSCULAR HEMOGLOBIN 30.2 pg (27.0-33.0); MEAN CORPUSCULAR HGB CONC 32.4 g/dl (32.0-36.5); MEAN CORPUSCULAR VOLUME 93.2 fl (80.0-96.0); PLATELET COUNT, AUTOMATED 252 10^3/uL (150-450); RED BLOOD COUNT 4.83 10^6/uL (4.30-6.10); WHITE BLOOD COUNT 7.4 10^3/uL (4.0-10.0)
[2023-02-01 12:45] LABS: ALBUMIN 3.7 G/DL (3.2-5.2); ALKALINE PHOSPHATASE 88 U/L (46-116); ALT/SGPT 26 U/L (7.0-40); AST/SGOT 15 U/L (<34); BILIRUBIN,TOTAL 0.5 MG/DL (0.3-1.2); BLOOD UREA NITROGEN 13 MG/DL (9-23); CALCIUM LEVEL 9.5 MG/DL (8.3-10.6); CARBON DIOXIDE LEVEL 26 MMOL/L (20-31); CHLORIDE LEVEL 107 MMOL/L (98-107); CHOLESTEROL LEVEL 152 MG/DL (<200); CHOLESTEROL RISK RATIO 2.95 (<5); CREATININE FOR GFR 0.91 MG/DL (0.70-1.30); GLOMERULAR FILTRATION RATE > 60.0 (>35); GLUCOSE, FASTING 79 MG/DL (74-106); HDL CHOLESTEROL 51.5 MG/DL (>40); LDL CHOLESTEROL 89.3 MG/DL (<100); NON-HDL-C 100.5 MG/DL; POTASSIUM SERUM 4.1 MMOL/L (3.5-5.1); SODIUM LEVEL 141 MMOL/L (136-145); TOTAL PROTEIN 6.5 G/DL (5.7-8.2); TRIGLYCERIDES LEVEL 56 MG/DL (<150)
[2023-02-01 13:21] LABS: ERYTHROCYTE SEDIMENTATION RATE 34 mm/hr (0-20)
== END ==
LOC: M SFHCCLAY 07:33
PROVIDERS: ATTEND Family Medicine
DX: H93.13 Tinnitus, bilateral (principal); E78.00 Pure hypercholesterolemia, unspecified; R53.83 Other fatigue

== ENCOUNTER → 2023-02-03 | Outpatient (CLI) | payer MEDICARE | LOC: M SOG 08:10 | PROVIDERS: ATTEND Orthopaedic Surgery | DX: M17.0 Bilateral primary osteoarthritis of knee (principal); M16.12 Unilateral primary osteoarthritis, left hip ==

== ENCOUNTER → 2023-02-20 | Outpatient (REF) | payer MEDICARE | LOC: M SFHCCLAY 13:35 | PROVIDERS: ATTEND Family Medicine | DX: R53.81 Other malaise (principal); M25.50 Pain in unspecified joint ==

== ENCOUNTER → 2023-02-22 | Outpatient (CLI) | payer MEDICARE | LOC: M PLAIMG 12:58 | PROVIDERS: ATTEND Family Medicine | DX: R40.4 Transient alteration of awareness (principal); R90.82 White matter disease, unspecified ==

== ENCOUNTER → 2023-03-17 | Outpatient (REF) | payer MEDICARE | LOC: M SFHCCLAY 07:26 | PROVIDERS: ATTEND Family Medicine | DX: R53.81 Other malaise (principal); M25.50 Pain in unspecified joint; R70.0 Elevated erythrocyte sedimentation rate ==

== ENCOUNTER → 2023-03-23 | Outpatient (REF) | payer MEDICARE ==
[2023-03-23 17:27] LABS: APPEARANCE, URINE CLEAR (CLEAR); BACTERIA, URINE AUTO NEGATIVE (NEGATIVE); BILIRUBIN, URINE AUTO NEGATIVE (NEGATIVE); BLOOD, URINE BLOOD NEGATIVE (NEGATIVE); COLOR, URINE YELLOW (YELLOW); GLUCOSE, URINE (UA) AUTO NEGATIVE (NEGATIVE); KETONE, URINE AUTO TRACE mg/dL (NEGATIVE); LEUKOCYTE ESTERASE, URINE AUTO NEGATIVE (NEGATIVE); MUCUS, URINE SMALL (NEGATIVE); NITRITE, URINE AUTO NEGATIVE (NEGATIVE); PROTEIN, URINE AUTO NEGATIVE (NEGATIVE); RBC, URINE AUTO 0 /HPF (0-3); SPECIFIC GRAVITY URINE AUTO 1.013 (1.002-1.035); SQUAMOUS EPITHELIAL CELL UR AU 0 /HPF (0-6); UROBILINOGEN, URINE AUTO 0.2 mg/dL (0.0-2.0); WBC, URINE AUTO 0 /HPF (0-3)
[2023-03-23 17:44] LABS: C REACTIVE PROTEIN QUANTITATIV < 0.40 MG/DL (<1.0)
[2023-03-23 17:46] LABS: RHEUMATOID FACTOR QUANT 3.7 IU/ML (<14)
[2023-03-23 17:52] LABS: ALBUMIN 3.8 G/DL (3.2-5.2); ALKALINE PHOSPHATASE 99 U/L (46-116); ALT/SGPT 25 U/L (7.0-40); AST/SGOT 13 U/L (<34); BILIRUBIN,TOTAL 0.6 MG/DL (0.3-1.2); BLOOD UREA NITROGEN 15 MG/DL (9-23); CALCIUM LEVEL 10.1 MG/DL (8.3-10.6); CARBON DIOXIDE LEVEL 26 MMOL/L (20-31); CHLORIDE LEVEL 105 MMOL/L (98-107); CREATININE FOR GFR 0.82 MG/DL (0.70-1.30); FREE T4 1.13 NG/DL (0.89-1.76); GLOMERULAR FILTRATION RATE > 60.0 (>35); GLUCOSE, FASTING 92 MG/DL (74-106); POTASSIUM SERUM 4.3 MMOL/L (3.5-5.1); SODIUM LEVEL 139 MMOL/L (136-145); THYROID STIMULATING HORMONE 2.513 uIU/ML (0.55-4.78)
== END ==
LOC: M SFHCCLAY 11:22
PROVIDERS: ATTEND Family Medicine
DX: M17.11 Unilateral primary osteoarthritis, right knee (principal); R70.0 Elevated erythrocyte sedimentation rate; G93.0 Cerebral cysts; Z79.899 Other long term (current) drug therapy

== ENCOUNTER → 2023-04-03 | Outpatient (REF) | payer MEDICARE ==
[2023-04-03 19:41] LABS: FOLATE 20.8 NG/ML (>5.4)
== END ==
LOC: M LABDRAWC 17:04
PROVIDERS: ATTEND Psychiatry & Neurology Neurology
DX: E53.8 Deficiency of other specified B group vitamins (principal); M10.9 Gout, unspecified

== ENCOUNTER → 2023-10-31 | Outpatient (REF) | payer MEDICARE | LOC: M SFHCCLAY 13:57 | PROVIDERS: ATTEND Family Medicine | DX: R97.20 Elevated prostate specific antigen [PSA] (principal); K21.9 Gastro-esophageal reflux disease without esophagitis; K57.30 Diverticulosis of large intestine without perforation or abscess without bleeding; N40.1 Benign prostatic hyperplasia with lower urinary tract symptoms; R26.89 Other abnormalities of gait and mobility; E78.00 Pure hypercholesterolemia, unspecified ==

== ENCOUNTER → 2023-11-02 | Outpatient (REF) | payer MEDICARE ==
[2023-11-02 12:02] LABS: HEMATOCRIT 44.7 % (42.0-52.0); HEMOGLOBIN 14.7 g/dl (13.5-17.5); MEAN CORPUSCULAR HEMOGLOBIN 30.9 pg (27.0-33.0); MEAN CORPUSCULAR HGB CONC 32.9 g/dl (32.0-36.5); MEAN CORPUSCULAR VOLUME 93.9 fl (80.0-96.0); PLATELET COUNT, AUTOMATED 235 10^3/uL (150-450); RED BLOOD COUNT 4.76 10^6/uL (4.30-6.10); WHITE BLOOD COUNT 7.3 10^3/uL (4.0-10.0)
[2023-11-02 12:26] LABS: PROSTATIC SPECIFIC AG MONITOR 2.09 NG/ML (< 4.00)
[2023-11-02 12:30] LABS: THYROID STIMULATING HORMONE 3.136 uIU/ML (0.55-4.78)
[2023-11-02 12:58] LABS: ALBUMIN 3.8 G/DL (3.2-5.2); ALKALINE PHOSPHATASE 95 U/L (46-116); ALT/SGPT 26 U/L (7.0-40); AST/SGOT 16 U/L (<34); BILIRUBIN,TOTAL 0.6 MG/DL (0.3-1.2); BLOOD UREA NITROGEN 16 MG/DL (9-23); CALCIUM LEVEL 10.1 MG/DL (8.3-10.6); CARBON DIOXIDE LEVEL 28 MMOL/L (20-31); CHLORIDE LEVEL 109 MMOL/L (98-107); CHOLESTEROL LEVEL 142 MG/DL (<200); CHOLESTEROL RISK RATIO 2.85 (<5); CREATININE FOR GFR 0.87 MG/DL (0.70-1.30); GLOMERULAR FILTRATION RATE > 60.0 (>35); GLUCOSE, FASTING 73 MG/DL (74-106); HDL CHOLESTEROL 49.8 MG/DL (>40); LDL CHOLESTEROL 84.2 MG/DL (<100); NON-HDL-C 92.2 MG/DL; POTASSIUM SERUM 4.6 MMOL/L (3.5-5.1); SODIUM LEVEL 142 MMOL/L (136-145); TOTAL PROTEIN 6.7 G/DL (5.7-8.2); TRIGLYCERIDES LEVEL 40 MG/DL (<150)
== END ==
LOC: M SFHCCLAY 08:39
PROVIDERS: ATTEND Family Medicine
DX: R97.20 Elevated prostate specific antigen [PSA] (principal); K21.9 Gastro-esophageal reflux disease without esophagitis; K57.30 Diverticulosis of large intestine without perforation or abscess without bleeding; N40.1 Benign prostatic hyperplasia with lower urinary tract symptoms; R26.89 Other abnormalities of gait and mobility; E78.00 Pure hypercholesterolemia, unspecified

== ENCOUNTER → 2023-11-14 | Outpatient (CLI) | payer MEDICARE | LOC: M RAD 14:18 | PROVIDERS: ATTEND Family Medicine | DX: N40.1 Benign prostatic hyperplasia with lower urinary tract symptoms (principal); R97.20 Elevated prostate specific antigen [PSA]; R39.198 Other difficulties with micturition ==

== ENCOUNTER → 2024-01-19 | Outpatient (CLI) | payer MEDICARE | LOC: M CLY 13:08 | PROVIDERS: ATTEND Urology | DX: N40.1 Benign prostatic hyperplasia with lower urinary tract symptoms (principal) ==

== ENCOUNTER → 2024-01-19 | Outpatient (REF) | payer MEDICARE ==
[2024-01-19 18:05] LABS: HEMOGLOBIN 14.1 g/dl (13.5-17.5); MEAN CORPUSCULAR HGB CONC 33.6 g/dl (32.0-36.5); MEAN CORPUSCULAR VOLUME 92.3 fl (80.0-96.0); PLATELET COUNT, AUTOMATED 230 10^3/uL (150-450); RED BLOOD COUNT 4.55 10^6/uL (4.30-6.10); WHITE BLOOD COUNT 7.9 10^3/uL (4.0-10.0)
[2024-01-19 18:08] LABS: ALBUMIN 3.7 G/DL (3.2-5.2); ALKALINE PHOSPHATASE 97 U/L (46-116); ALT/SGPT 30 U/L (7.0-40); AST/SGOT 15 U/L (<34); BILIRUBIN,TOTAL 0.4 MG/DL (0.3-1.2); BLOOD UREA NITROGEN 20 MG/DL (9-23); CALCIUM LEVEL 10.2 MG/DL (8.3-10.6); CARBON DIOXIDE LEVEL 26 MMOL/L (20-31); CHLORIDE LEVEL 108 MMOL/L (98-107); CREATININE FOR GFR 0.82 MG/DL (0.70-1.30); GLOMERULAR FILTRATION RATE > 60.0 (>35); GLUCOSE, FASTING 108 MG/DL (74-106); POTASSIUM SERUM 4.3 MMOL/L (3.5-5.1); SODIUM LEVEL 141 MMOL/L (136-145); TOTAL PROTEIN 6.6 G/DL (5.7-8.2)
== END ==
LOC: M SFHCCLAY 12:57
PROVIDERS: ATTEND Urology
DX: N40.1 Benign prostatic hyperplasia with lower urinary tract symptoms (principal); Z79.899 Other long term (current) drug therapy

== ENCOUNTER → 2024-02-02 | Outpatient (REF) | payer MEDICARE ==
[~2024-02-02] MED LIST changes: +COLA100C5 PO; +SENN-186 PO; +SYST1SOL4 OP; +THERTAB52 PO
== END ==
LOC: M SMT 16:42
PROVIDERS: ATTEND Urology
DX: N40.1 Benign prostatic hyperplasia with lower urinary tract symptoms (principal)

== ENCOUNTER 2024-02-12 07:59 | Day surgery (SDC) | payer MEDICARE ==
[~2024-02-12] VITALS: Ht 188 cm; Wt 83.2 kg
[~2024-02-12 07:59] MED LIST changes: +ALFU10TA23 PO; -ALFU10TA3 PO; +UNRESOLVED CLARIFICATION ENTRY XX SCH
[2024-02-12] MEDS ORDERED: LIDOCAINE 2% 100MG/5ML SDV (FOR ANES.) As Ordered ONE (08:06)
[2024-02-12] MEDS ORDERED: propofoL 200 MG/20 ML VIAL As Ordered ONE (08:06)
[2024-02-12] MEDS ORDERED: ONDANSETRON 4MG 2ML VIAL As Ordered ONE (08:06)
[2024-02-12] MEDS ORDERED: LR 1,000 ML IV SCH ×2 (09:20→11:00)
[2024-02-12] MEDS ORDERED: fentaNYL 100 MCG/2 ML INJECTION As Ordered ONE (09:21)
[2024-02-12] MEDS ORDERED: ceFAZolin SOD 2 GM in IV 1 EA IV ONE ×2 (09:40→09:50)
[2024-02-12] MEDS ORDERED: ceFAZolin SOD 1 GM in D5W MINI-BAG PLUS 50 ML IV ONE (09:40)
[2024-02-12] MEDS ORDERED: ACETAMINOPHEN 1000MG 100ML IV BAG As Ordered ONE (10:06)
[2024-02-12] MEDS ORDERED: MACR100C43 PO (10:55)
[2024-02-12] MEDS ORDERED: PYRI1TAB5 PO (10:55)
[2024-02-12] MEDS ORDERED: HYDROMORPHONE HCL 0.5 MG/ 0.5 ML SYRINGE IV PRN (11:00)
[2024-02-12] MEDS ORDERED: fentaNYL 100 MCG/2 ML INJECTION IV PRN (11:00)
[2024-02-12] MEDS ORDERED: ONDANSETRON 4MG 2ML VIAL IV PRN (11:00)
[2024-02-12] MEDS: oxyCODONE 5MG TAB PO PRN (11:16)
[2024-02-12 12:42] VITALS: BP 158/73; TEMP 97.2; O2SAT 99
== END 2024-02-12 12:52 | disposition home or self-care (01) ==
LOC: M SDC 07:59
PROVIDERS: ATTEND Urology
DX: N40.1 Benign prostatic hyperplasia with lower urinary tract symptoms (principal); E78.5 Hyperlipidemia, unspecified; Z87.891 Personal history of nicotine dependence; K21.9 Gastro-esophageal reflux disease without esophagitis; Z88.8 Allergy status to other drugs, medicaments and biological substances
CPT/HCPCS: 52601; 88305; J0131; J1100; J2405; J3010

== ENCOUNTER 2024-02-24 14:28 | Emergency (ER) | payer MEDICARE ==
[~2024-02-24] VITALS: Ht 188 cm; Wt 78.2 kg
[~2024-02-24 14:28] MED LIST changes: +MACR100C43 PO; +PYRI1TAB5 PO; -UNRESOLVED CLARIFICATION ENTRY XX SCH
[2024-02-24 14:29] VITALS: BP 131/73; TEMP 98.2; O2SAT 98
[2024-02-24 17:23] LABS: APPEARANCE, URINE CLOUDY (CLEAR); BACTERIA, URINE AUTO NEGATIVE (NEGATIVE); BILIRUBIN, URINE AUTO NEGATIVE (NEGATIVE); BLOOD, URINE BLOOD 3+ (NEGATIVE); COLOR, URINE AMBER (YELLOW); GLUCOSE, URINE (UA) AUTO NEGATIVE (NEGATIVE); KETONE, URINE AUTO NEGATIVE (NEGATIVE); LEUKOCYTE ESTERASE, URINE AUTO 2+ (NEGATIVE); MUCUS, URINE SMALL (NEGATIVE); NITRITE, URINE AUTO NEGATIVE (NEGATIVE); PROTEIN, URINE AUTO 2+ mg/dL (NEGATIVE); RBC, URINE AUTO TNTC /HPF (0-3); SPECIFIC GRAVITY URINE AUTO 1.023 (1.002-1.035); SQUAMOUS EPITHELIAL CELL UR AU 0 /HPF (0-6); UROBILINOGEN, URINE AUTO 0.2 mg/dL (0.0-2.0); WBC, URINE AUTO 90 /HPF (0-3)
== END 2024-02-24 17:50 | disposition home or self-care (01) ==
LOC: M ED 14:28
DX: R33.8 Other retention of urine (principal); K21.9 Gastro-esophageal reflux disease without esophagitis; E78.5 Hyperlipidemia, unspecified; Z48.816 Encounter for surgical aftercare following surgery on the genitourinary system; Z88.8 Allergy status to other drugs, medicaments and biological substances; Z79.1 Long term (current) use of non-steroidal anti-inflammatories (NSAID); Z79.810 Long term (current) use of selective estrogen receptor modulators (SERMs); Z79.899 Other long term (current) drug therapy

== ENCOUNTER → 2024-02-26 | Outpatient (REF) | payer MEDICARE ==
[2024-02-26 19:00] LABS: APPEARANCE, URINE HAZY (CLEAR); BACTERIA, URINE AUTO 1+ (NEGATIVE); BILIRUBIN, URINE AUTO NEGATIVE (NEGATIVE); BLOOD, URINE BLOOD 3+ (NEGATIVE); COLOR, URINE YELLOW (YELLOW); GLUCOSE, URINE (UA) AUTO NEGATIVE (NEGATIVE); KETONE, URINE AUTO NEGATIVE (NEGATIVE); LEUKOCYTE ESTERASE, URINE AUTO 3+ (NEGATIVE); MUCUS, URINE SMALL (NEGATIVE); NITRITE, URINE AUTO NEGATIVE (NEGATIVE); PROTEIN, URINE AUTO 2+ mg/dL (NEGATIVE); RBC, URINE AUTO 37 /HPF (0-3); SQUAMOUS EPITHELIAL CELL UR AU 0 /HPF (0-6); UROBILINOGEN, URINE AUTO 0.2 mg/dL (0.0-2.0); WBC, URINE AUTO 12 /HPF (0-3)
== END ==
LOC: M SMT 17:41
PROVIDERS: ATTEND Physician Assistant
DX: R30.0 Dysuria (principal)

== ENCOUNTER → 2024-02-29 | Outpatient (REF) | payer MEDICARE ==
[2024-02-29 13:19] LABS: APPEARANCE, URINE CLEAR (CLEAR); BACTERIA, URINE AUTO NEGATIVE (NEGATIVE); BILIRUBIN, URINE AUTO NEGATIVE (NEGATIVE); BLOOD, URINE BLOOD 3+ (NEGATIVE); COLOR, URINE AMBER (YELLOW); GLUCOSE, URINE (UA) AUTO NEGATIVE (NEGATIVE); KETONE, URINE AUTO NEGATIVE (NEGATIVE); LEUKOCYTE ESTERASE, URINE AUTO 1+ (NEGATIVE); MUCUS, URINE SMALL (NEGATIVE); NITRITE, URINE AUTO POSITIVE (NEGATIVE); PROTEIN, URINE AUTO 1+ mg/dL (NEGATIVE); RBC, URINE AUTO 102 /HPF (0-3); SPECIFIC GRAVITY URINE AUTO 1.011 (1.002-1.035); SQUAMOUS EPITHELIAL CELL UR AU 0 /HPF (0-6); WBC, URINE AUTO 11 /HPF (0-3)
== END ==
LOC: M SMT 12:38
PROVIDERS: ATTEND Physician Assistant
DX: R35.0 Frequency of micturition (principal)

== ENCOUNTER → 2024-03-14 | Outpatient (REF) | payer MEDICARE ==
[2024-03-14 18:29] LABS: APPEARANCE, URINE HAZY (CLEAR); BACTERIA, URINE AUTO 1+ (NEGATIVE); BILIRUBIN, URINE AUTO NEGATIVE (NEGATIVE); BLOOD, URINE BLOOD 3+ (NEGATIVE); COLOR, URINE YELLOW (YELLOW); GLUCOSE, URINE (UA) AUTO NEGATIVE (NEGATIVE); KETONE, URINE AUTO NEGATIVE (NEGATIVE); LEUKOCYTE ESTERASE, URINE AUTO 3+ (NEGATIVE); MUCUS, URINE SMALL (NEGATIVE); NITRITE, URINE AUTO NEGATIVE (NEGATIVE); PROTEIN, URINE AUTO 1+ mg/dL (NEGATIVE); RBC, URINE AUTO 84 /HPF (0-3); SPECIFIC GRAVITY URINE AUTO 1.019 (1.002-1.035); SQUAMOUS EPITHELIAL CELL UR AU 0 /HPF (0-6); UROBILINOGEN, URINE AUTO 0.2 mg/dL (0.0-2.0); WBC, URINE AUTO 132 /HPF (0-3)
== END ==
LOC: M SMT 16:59
PROVIDERS: ATTEND Physician Assistant
DX: N40.1 Benign prostatic hyperplasia with lower urinary tract symptoms (principal)

== ENCOUNTER → 2024-03-22 | Outpatient (REF) | payer MEDICARE | LOC: M SMT 12:49 | PROVIDERS: ATTEND Urology | DX: R39.9 Unspecified symptoms and signs involving the genitourinary system (principal) ==

== ENCOUNTER → 2024-04-03 | Outpatient (REF) | payer MEDICARE ==
[2024-04-03 11:22] LABS: APPEARANCE, URINE CLOUDY (CLEAR); BACTERIA, URINE AUTO 1+ (NEGATIVE); BILIRUBIN, URINE AUTO NEGATIVE (NEGATIVE); BLOOD, URINE BLOOD 2+ (NEGATIVE); CALCIUM OXALATE CRYSTALS SMALL; COLOR, URINE YELLOW (YELLOW); GLUCOSE, URINE (UA) AUTO NEGATIVE (NEGATIVE); KETONE, URINE AUTO NEGATIVE (NEGATIVE); LEUKOCYTE ESTERASE, URINE AUTO 3+ (NEGATIVE); MUCUS, URINE SMALL (NEGATIVE); NITRITE, URINE AUTO NEGATIVE (NEGATIVE); PROTEIN, URINE AUTO 2+ mg/dL (NEGATIVE); RBC, URINE AUTO 82 /HPF (0-3); SQUAMOUS EPITHELIAL CELL UR AU 0 /HPF (0-6); UROBILINOGEN, URINE AUTO 0.2 mg/dL (0.0-2.0); WBC, URINE AUTO TNTC /HPF (0-3)
[2024-04-03 11:52] LABS: RSV AMPLIFICATION NEGATIVE (NEGATIVE)
== END ==
LOC: M SFHCCLAY 07:06
PROVIDERS: ATTEND Family Medicine
DX: N39.0 Urinary tract infection, site not specified (principal); B34.9 Viral infection, unspecified

== ENCOUNTER → 2024-04-17 | Outpatient (REF) | payer MEDICARE | LOC: M SFHCCLAY 14:42 | PROVIDERS: ATTEND Family Medicine | DX: R35.0 Frequency of micturition (principal) ==

== ENCOUNTER → 2024-04-19 | Outpatient (REF) | payer MEDICARE ==
[2024-04-19 19:14] LABS: APPEARANCE, URINE CLOUDY (CLEAR); BACTERIA, URINE AUTO NEGATIVE (NEGATIVE); BILIRUBIN, URINE AUTO NEGATIVE (NEGATIVE); BLOOD, URINE BLOOD 3+ (NEGATIVE); CALCIUM OXALATE CRYSTALS SMALL; COLOR, URINE AMBER (YELLOW); GLUCOSE, URINE (UA) AUTO NEGATIVE (NEGATIVE); KETONE, URINE AUTO NEGATIVE (NEGATIVE); LEUKOCYTE ESTERASE, URINE AUTO 3+ (NEGATIVE); MUCUS, URINE SMALL (NEGATIVE); NITRITE, URINE AUTO NEGATIVE (NEGATIVE); PROTEIN, URINE AUTO 2+ mg/dL (NEGATIVE); RBC, URINE AUTO TNTC /HPF (0-3); SQUAMOUS EPITHELIAL CELL UR AU 1 /HPF (0-6); UROBILINOGEN, URINE AUTO 0.2 mg/dL (0.0-2.0); WBC, URINE AUTO TNTC /HPF (0-3)
== END ==
LOC: M SFHCCLAY 17:31
PROVIDERS: ATTEND Family Medicine
DX: R35.0 Frequency of micturition (principal)

== ENCOUNTER → 2024-05-03 | Outpatient (REF) | payer MEDICARE ==
[~2024-05-03] MED LIST changes: +BACT800T5 PO; +RA N1TAB PO
[2024-05-03 17:28] LABS: APPEARANCE, URINE CLOUDY (CLEAR); BACTERIA, URINE AUTO NEGATIVE (NEGATIVE); BILIRUBIN, URINE AUTO NEGATIVE (NEGATIVE); BLOOD, URINE BLOOD 3+ (NEGATIVE); CALCIUM OXALATE CRYSTALS MODERATE; COLOR, URINE AMBER (YELLOW); GLUCOSE, URINE (UA) AUTO NEGATIVE (NEGATIVE); KETONE, URINE AUTO NEGATIVE (NEGATIVE); LEUKOCYTE ESTERASE, URINE AUTO 2+ (NEGATIVE); MUCUS, URINE SMALL (NEGATIVE); NITRITE, URINE AUTO NEGATIVE (NEGATIVE); PROTEIN, URINE AUTO 2+ mg/dL (NEGATIVE); RBC, URINE AUTO TNTC /HPF (0-3); SPECIFIC GRAVITY URINE AUTO 1.021 (1.002-1.035); SQUAMOUS EPITHELIAL CELL UR AU 0 /HPF (0-6); UROBILINOGEN, URINE AUTO 0.2 mg/dL (0.0-2.0); WBC, URINE AUTO 143 /HPF (0-3)
== END ==
LOC: M SMT 16:55
PROVIDERS: ATTEND Nurse Practitioner Family
DX: R31.0 Gross hematuria (principal)

== ENCOUNTER 2024-05-08 09:25 | Day surgery (SDC) | payer MEDICARE ==
[~2024-05-08] VITALS: Ht 188 cm; Wt 75.2 kg
[2024-05-08] MEDS: NS 1,000 ML IV ONE (09:56)
[2024-05-08] MEDS ORDERED: LIDOCAINE 2% 100MG/5ML SDV (FOR ANES.) As Ordered ONE (10:17)
[2024-05-08] MEDS ORDERED: propofoL 200 MG/20 ML VIAL As Ordered ONE (10:17)
[2024-05-08] MEDS ORDERED: dexmedeTOMIDine (4MCG/ML)200MCG/50ML BTL (PRECEDEX) As Ordered ONE (10:17)
[2024-05-08 11:25] VITALS: BP 104/66; O2SAT 100
== END 2024-05-08 11:25 | disposition home or self-care (01) ==
LOC: M OPP 09:25
PROVIDERS: ATTEND Surgery
DX: Z12.11 Encounter for screening for malignant neoplasm of colon (principal); K64.1 Second degree hemorrhoids; E78.00 Pure hypercholesterolemia, unspecified; K21.9 Gastro-esophageal reflux disease without esophagitis; N40.0 Benign prostatic hyperplasia without lower urinary tract symptoms; Z85.828 Personal history of other malignant neoplasm of skin; Z88.8 Allergy status to other drugs, medicaments and biological substances; Z79.82 Long term (current) use of aspirin; Z79.899 Other long term (current) drug therapy

== ENCOUNTER → 2024-05-30 | Outpatient (REF) | payer MEDICARE ==
[2024-05-30 13:27] LABS: APPEARANCE, URINE HAZY (CLEAR); BACTERIA, URINE AUTO NEGATIVE (NEGATIVE); BILIRUBIN, URINE AUTO NEGATIVE (NEGATIVE); BLOOD, URINE BLOOD 1+ (NEGATIVE); COLOR, URINE AMBER (YELLOW); GLUCOSE, URINE (UA) AUTO NEGATIVE (NEGATIVE); KETONE, URINE AUTO TRACE mg/dL (NEGATIVE); LEUKOCYTE ESTERASE, URINE AUTO 1+ (NEGATIVE); NITRITE, URINE AUTO NEGATIVE (NEGATIVE); PROTEIN, URINE AUTO 1+ mg/dL (NEGATIVE); RBC, URINE AUTO 27 /HPF (0-3); SQUAMOUS EPITHELIAL CELL UR AU 0 /HPF (0-6); UROBILINOGEN, URINE AUTO 0.2 mg/dL (0.0-2.0); WBC, URINE AUTO 17 /HPF (0-3)
== END ==
LOC: M SMT 12:41
PROVIDERS: ATTEND Nurse Practitioner Family
DX: R30.0 Dysuria (principal)

== ENCOUNTER → 2024-07-30 | Outpatient (REF) | payer MEDICARE ==
[2024-07-30 16:06] LABS: APPEARANCE, URINE HAZY (CLEAR); BACTERIA, URINE AUTO NEGATIVE (NEGATIVE); BILIRUBIN, URINE AUTO NEGATIVE (NEGATIVE); BLOOD, URINE BLOOD NEGATIVE (NEGATIVE); COLOR, URINE YELLOW (YELLOW); GLUCOSE, URINE (UA) AUTO NEGATIVE (NEGATIVE); KETONE, URINE AUTO NEGATIVE (NEGATIVE); LEUKOCYTE ESTERASE, URINE AUTO NEGATIVE (NEGATIVE); MUCUS, URINE SMALL (NEGATIVE); NITRITE, URINE AUTO NEGATIVE (NEGATIVE); PROTEIN, URINE AUTO NEGATIVE (NEGATIVE); RBC, URINE AUTO 0 /HPF (0-3); SPECIFIC GRAVITY URINE AUTO 1.018 (1.002-1.035); SQUAMOUS EPITHELIAL CELL UR AU 0 /HPF (0-6); UROBILINOGEN, URINE AUTO 0.2 mg/dL (0.0-2.0); WBC, URINE AUTO 6 /HPF (0-3)
== END ==
LOC: M SMT 15:01
PROVIDERS: ATTEND Nurse Practitioner Family
DX: R30.0 Dysuria (principal)

== ENCOUNTER → 2024-09-04 | Outpatient (REF) | payer MEDICARE ==
[2024-09-04 18:50] LABS: APPEARANCE, URINE HAZY (CLEAR); BACTERIA, URINE AUTO NEGATIVE (NEGATIVE); BILIRUBIN, URINE AUTO NEGATIVE (NEGATIVE); BLOOD, URINE BLOOD 1+ (NEGATIVE); COLOR, URINE YELLOW (YELLOW); GLUCOSE, URINE (UA) AUTO NEGATIVE (NEGATIVE); KETONE, URINE AUTO NEGATIVE (NEGATIVE); LEUKOCYTE ESTERASE, URINE AUTO TRACE (NEGATIVE); MUCUS, URINE SMALL (NEGATIVE); NITRITE, URINE AUTO NEGATIVE (NEGATIVE); PROTEIN, URINE AUTO NEGATIVE (NEGATIVE); RBC, URINE AUTO 25 /HPF (0-3); SPECIFIC GRAVITY URINE AUTO 1.014 (1.002-1.035); SQUAMOUS EPITHELIAL CELL UR AU 0 /HPF (0-6); UROBILINOGEN, URINE AUTO 0.2 mg/dL (0.0-2.0); WBC, URINE AUTO 11 /HPF (0-3)
== END ==
LOC: M SMT 17:08
PROVIDERS: ATTEND Urology
DX: R39.9 Unspecified symptoms and signs involving the genitourinary system (principal)

== ENCOUNTER → 2024-09-11 | Outpatient (REF) | payer MEDICARE | LOC: M SFHCCLAY 15:06 | PROVIDERS: ATTEND Nurse Practitioner Family | DX: N40.1 Benign prostatic hyperplasia with lower urinary tract symptoms (principal); R30.0 Dysuria; R97.20 Elevated prostate specific antigen [PSA]; K21.9 Gastro-esophageal reflux disease without esophagitis; E78.00 Pure hypercholesterolemia, unspecified; R26.89 Other abnormalities of gait and mobility ==

== ENCOUNTER → 2024-09-12 | Outpatient (REF) | payer MEDICARE ==
[2024-09-12 18:05] LABS: HEMOGLOBIN 14.2 g/dl (13.5-17.5); MEAN CORPUSCULAR VOLUME 93.9 fl (80.0-96.0); PLATELET COUNT, AUTOMATED 248 10^3/uL (150-450); RED BLOOD COUNT 4.58 10^6/uL (4.30-6.10); WHITE BLOOD COUNT 7.8 10^3/uL (4.0-10.0)
[2024-09-12 18:33] LABS: IRON (FE) 76 UG/DL (65-175)
[2024-09-12 18:34] LABS: FERRITIN 141.7 NG/ML (10.5-307.3); THYROID STIMULATING HORMONE 2.218 uIU/ML (0.55-4.78); VITAMIN B12 LEVEL 969 PG/ML (211-911)
[2024-09-12 18:40] LABS: ALBUMIN 3.5 G/DL (3.2-5.2); ALKALINE PHOSPHATASE 84 U/L (40-129); ALT/SGPT 20 U/L (7.0-40); AST/SGOT 17 U/L (<34); BILIRUBIN,TOTAL 0.5 MG/DL (0.3-1.2); BLOOD UREA NITROGEN 21 MG/DL (9-23); CARBON DIOXIDE LEVEL 29 MMOL/L (20-31); CHLORIDE LEVEL 107 MMOL/L (98-107); GLOMERULAR FILTRATION RATE > 60.0 (>35); GLUCOSE, FASTING 64 MG/DL (74-106); PERCENT SATURATION 31.1 % (19.7-50.0); POTASSIUM SERUM 4.6 MMOL/L (3.5-5.1); SODIUM LEVEL 138 MMOL/L (136-145); TOTAL IRON BINDING CAPACITY 244 UG/DL (250-425); TOTAL PROTEIN 6.6 G/DL (5.7-8.2)
[2024-09-16 17:07] LABS: PSA FREE 0.5 ng/mL; PSA TOTAL 2.8 ng/mL (< OR = 4.0)
== END ==
LOC: M SFHCCLAY 10:47
PROVIDERS: ATTEND Nurse Practitioner Family
DX: N40.1 Benign prostatic hyperplasia with lower urinary tract symptoms (principal); R30.0 Dysuria; R97.20 Elevated prostate specific antigen [PSA]; K21.9 Gastro-esophageal reflux disease without esophagitis; E78.00 Pure hypercholesterolemia, unspecified; R26.89 Other abnormalities of gait and mobility

== ENCOUNTER → 2024-10-04 | Outpatient (REF) | payer MEDICARE ==
[2024-10-04 17:06] LABS: INR 1.04; PROTHROMBIN TIME 13.9 SECONDS (12.5-14.5)
[2024-10-04 17:08] LABS: HEMATOCRIT 44.1 % (42.0-52.0); HEMOGLOBIN 15.1 g/dl (13.5-17.5); MEAN CORPUSCULAR HEMOGLOBIN 31.6 pg (27.0-33.0); MEAN CORPUSCULAR HGB CONC 34.2 g/dl (32.0-36.5); MEAN CORPUSCULAR VOLUME 92.3 fl (80.0-96.0); PLATELET COUNT, AUTOMATED 250 10^3/uL (150-450); RED BLOOD COUNT 4.78 10^6/uL (4.30-6.10); WHITE BLOOD COUNT 8.5 10^3/uL (4.0-10.0)
[2024-10-04 17:12] LABS: ALBUMIN 3.7 G/DL (3.2-5.2); ALKALINE PHOSPHATASE 90 U/L (40-129); ALT/SGPT 22 U/L (7.0-40); AST/SGOT 17 U/L (<34); BILIRUBIN,TOTAL 0.4 MG/DL (0.3-1.2); BLOOD UREA NITROGEN 19 MG/DL (9-23); CALCIUM LEVEL 10.7 MG/DL (8.3-10.6); CARBON DIOXIDE LEVEL 28 MMOL/L (20-31); CHLORIDE LEVEL 105 MMOL/L (98-107); CREATININE FOR GFR 0.92 MG/DL (0.70-1.30); GLOMERULAR FILTRATION RATE > 60.0 (>35); GLUCOSE, FASTING 85 MG/DL (74-106); POTASSIUM SERUM 4.7 MMOL/L (3.5-5.1); SODIUM LEVEL 141 MMOL/L (136-145)
== END ==
LOC: M SFHCCLAY 13:12
PROVIDERS: ATTEND Urology
DX: R39.9 Unspecified symptoms and signs involving the genitourinary system (principal)

== ENCOUNTER → 2024-10-04 | Outpatient (CLI) | payer MEDICARE | LOC: M CLY 13:16 | PROVIDERS: ATTEND Urology | DX: R39.9 Unspecified symptoms and signs involving the genitourinary system (principal) ==

== ENCOUNTER 2024-10-21 08:39 | Day surgery (SDC) | payer MEDICARE ==
[~2024-10-21] VITALS: Ht 188 cm; Wt 78.2 kg
[~2024-10-21 08:39] MED LIST changes: +LISI5TAB11 PO; +META0.52 PO; +OXYB5TAB14 PO; +PANT40TA29 PO; +SYST1SOL OU
[2024-10-21] MEDS ORDERED: LIDOCAINE 2% 100MG/5ML SDV (FOR ANES.) As Ordered ONE (08:46)
[2024-10-21] MEDS ORDERED: propofoL 200 MG/20 ML VIAL As Ordered ONE (08:46)
[2024-10-21] MEDS ORDERED: ONDANSETRON 4MG 2ML VIAL As Ordered ONE (08:46)
[2024-10-21] MEDS ORDERED: ePHEDrine SULFATE 25 MG/5 ML(5MG/ML) SYRINGE As Ordered ONE (08:47)
[2024-10-21] MEDS ORDERED: PHENYLephrine 500MCG 5ML (100MCG/ML) SYRINGE As Ordered ONE (08:47)
[2024-10-21] MEDS ORDERED: LR 1,000 ML IV SCH ×2 (08:55→10:40)
[2024-10-21] MEDS: ISOVUE-300 61% 100ML VIAL As Ordered ONE (09:14)
[2024-10-21] MEDS ORDERED: fentaNYL 100 MCG/2 ML INJECTION As Ordered ONE (09:27)
[2024-10-21] MEDS: ceFAZolin SOD 2 GM in IV 1 EA IV ONE (09:35)
[2024-10-21] MEDS ORDERED: ACETAMINOPHEN 1000MG/100ML IV BAG As Ordered ONE (09:38)
[2024-10-21] MEDS ORDERED: GLYCOPYRROLATE INJ 0.2 MG/ML 2 ML VIAL As Ordered ONE (09:48)
[2024-10-21] MEDS ORDERED: KETOROLAC 60MG 2ML VIAL As Ordered ONE (10:15)
[2024-10-21] MEDS ORDERED: HYDROMORPHONE HCL 0.5 MG/ 0.5 ML SYRINGE IV PRN (10:40)
[2024-10-21] MEDS ORDERED: ONDANSETRON 4MG 2ML VIAL IV PRN (10:40)
[2024-10-21] MEDS ORDERED: oxyCODONE 5MG TAB PO PRN (10:40)
[2024-10-21] MEDS ORDERED: fentaNYL 100 MCG/2 ML INJECTION IV PRN (10:40)
[2024-10-21 12:09] VITALS: BP 132/68; TEMP 97; O2SAT 97
== END 2024-10-21 12:10 | disposition home or self-care (01) ==
LOC: M SDC 08:39
PROVIDERS: ATTEND Urology
DX: N40.1 Benign prostatic hyperplasia with lower urinary tract symptoms (principal); N21.0 Calculus in bladder; I10 Essential (primary) hypertension; E78.5 Hyperlipidemia, unspecified; K21.9 Gastro-esophageal reflux disease without esophagitis; Z88.8 Allergy status to other drugs, medicaments and biological substances; Z79.82 Long term (current) use of aspirin; Z79.899 Other long term (current) drug therapy
CPT/HCPCS: 52317; 52601; 88305; C1769; C1894; J0131; J0690; J1100; J1596; J1885; J2371; J2405; J3010

== ENCOUNTER → 2024-11-12 | Outpatient (REF) | payer MEDICARE ==
[2024-11-12 17:22] LABS: APPEARANCE, URINE CLOUDY (CLEAR); BACTERIA, URINE AUTO 1+ (NEGATIVE); BILIRUBIN, URINE AUTO NEGATIVE (NEGATIVE); BLOOD, URINE BLOOD 3+ (NEGATIVE); COLOR, URINE YELLOW (YELLOW); GLUCOSE, URINE (UA) AUTO NEGATIVE (NEGATIVE); KETONE, URINE AUTO NEGATIVE (NEGATIVE); LEUKOCYTE ESTERASE, URINE AUTO 3+ (NEGATIVE); NITRITE, URINE AUTO POSITIVE (NEGATIVE); PROTEIN, URINE AUTO 2+ mg/dL (NEGATIVE); RBC, URINE AUTO TNTC /HPF (0-3); SPECIFIC GRAVITY URINE AUTO 1.012 (1.002-1.035); SQUAMOUS EPITHELIAL CELL UR AU 1 /HPF (0-6); UROBILINOGEN, URINE AUTO 0.2 mg/dL (0.0-2.0); WBC, URINE AUTO TNTC /HPF (0-3)
== END ==
LOC: M SMT 16:50
PROVIDERS: ATTEND Nurse Practitioner Family
DX: R31.0 Gross hematuria (principal)

== ENCOUNTER → 2025-03-27 | Outpatient (REF) | payer MEDICARE ==
[~2025-03-27] MED LIST changes: -FLOM0.4C39 PO; -PRAV10TA3 PO; +PRAV10TA43 PO; -PRAV40TA2 PO; +PRAV40TA85 PO; +TAMS-18 PO
[2025-03-27 15:39] LABS: APPEARANCE, URINE CLEAR (CLEAR); BACTERIA, URINE AUTO NEGATIVE (NEGATIVE); BILIRUBIN, URINE AUTO NEGATIVE (NEGATIVE); BLOOD, URINE BLOOD NEGATIVE (NEGATIVE); GLUCOSE, URINE (UA) AUTO NEGATIVE (NEGATIVE); KETONE, URINE AUTO NEGATIVE (NEGATIVE); LEUKOCYTE ESTERASE, URINE AUTO NEGATIVE (NEGATIVE); NITRITE, URINE AUTO NEGATIVE (NEGATIVE); PROTEIN, URINE AUTO NEGATIVE (NEGATIVE); RBC, URINE AUTO 1 /HPF (0-3); SPECIFIC GRAVITY URINE AUTO 1.012 (1.002-1.035); SQUAMOUS EPITHELIAL CELL UR AU 0 /HPF (0-6); UROBILINOGEN, URINE AUTO 0.2 mg/dL (0.0-2.0); WBC, URINE AUTO 0 /HPF (0-3)
== END ==
LOC: M SMT 14:57
PROVIDERS: ATTEND Nurse Practitioner Family
DX: N50.89 Other specified disorders of the male genital organs (principal)

== ENCOUNTER → 2025-06-10 | Outpatient (REF) | payer MEDICARE ==
[2025-06-10 18:31] LABS: PROSTATIC SPECIFIC AG MONITOR 0.88 NG/ML (< 4.00)
[2025-06-10 18:37] LABS: ALT/SGPT 24.0 U/L (7.0-40); AST/SGOT 25.0 U/L (<34); BASO # 0.1 10^3/uL (0.0-0.2); BASO % 1.2 % (0.0-1.0); CALCIUM LEVEL 10.2 MG/DL (8.3-10.6); CARBON DIOXIDE LEVEL 26.0 MMOL/L (20-31); CHLORIDE LEVEL 105.0 MMOL/L (98-107); CHOLESTEROL LEVEL 142.0 MG/DL (<200); CHOLESTEROL RISK RATIO 2.77 (<5); CREATININE FOR GFR 1.14 MG/DL (0.70-1.30); EOS # 0.3 10^3/uL (0.0-0.5); EOS % 4.4 % (0.0-3.0); GLOMERULAR FILTRATION RATE 63.8 (>35); LDL CHOLESTEROL 79.4 MG/DL (<100); LYMPH # 1.6 10^3/uL (1.5-5.0); LYMPH % 20.8 % (24.0-44.0); MONO # 0.8 10^3/uL (0.0-0.8); MONO % 10.1 % (2.0-8.0); NEUTROPHILS # 4.8 10^3/uL (1.5-8.5); NEUTROPHILS % 63.2 % (36.0-66.0); NON-HDL-C 90.8 MG/DL; PLATELET COUNT, AUTOMATED 263 10^3/uL (150-450); POTASSIUM SERUM 4.7 MMOL/L (3.5-5.1); SODIUM LEVEL 142.0 MMOL/L (136-145); TRIGLYCERIDES LEVEL 57.0 MG/DL (<150)
== END ==
LOC: M SFHCCLAY 13:53
PROVIDERS: ATTEND Nurse Practitioner Family
DX: N40.1 Benign prostatic hyperplasia with lower urinary tract symptoms (principal); R97.20 Elevated prostate specific antigen [PSA]; K21.9 Gastro-esophageal reflux disease without esophagitis; E78.00 Pure hypercholesterolemia, unspecified; R26.89 Other abnormalities of gait and mobility; G93.0 Cerebral cysts